=== PATIENT | female | born 1995 | race Caucasian/White ===

== ENCOUNTER 2019-07-08 15:18 | Outpatient (CLI) | payer MEDICARE, MEDICAID ==
--- NOTE | 2019-07-08 16:17 | ULT ---
Exam: Transabdominal and endovaginal pelvic ultrasound HISTORY:Uterine hypertrophy. Pelvic pain. COMPARISON: None TECHNIQUE: Transabdominal and endovaginal imaging of the pelvis is performed. Ovaries are interrogate d with grayscale, color flow, Doppler imaging and spectral wave form analysis FINDINGS: Uterus: No myometrial masses. Uterus measurin.3 x 3.1 x 4.0 cm. Endometrium: Homogeneous echotexture. Endometrium diameter: 0.6 cm. Nabothian cyst measuring 0.5 x 0.6 x 0.7 cm. Free fluid: None Right ovary: Normal echotexture. Simple cyst measuring 1.5 x 1.2 x 1.4 cm. Possible complex cyst karla uring 1.0 x 1.0 x 0.9 cm Right ovary measurement: 2.5 x 2.6 x 2.2 cm Left ovary: Normal echotexture. Left ovary measurements: 2.5 x 2.8 x 1.5 cm Ovarian Doppler: There is vascular flow to the left and right ovary. IMPRESSION: 1. Unremarkable ultrasound of the uterus. 2. Simple cyst in the right ovary. Possible complex cyst in the right ovary. Follow-up ultrasound in 8 weeks is recommended to ensure resolution.
== END 2019-07-08 15:19 | disposition home or self-care (01) ==
LOC: BICULT 15:18
PROVIDERS: ATTEND Nurse Practitioner
DX: N85.2 Hypertrophy of uterus (principal); N83.201 Unspecified ovarian cyst, right side
CPT/HCPCS: 76856

== ENCOUNTER 2020-06-15 09:16 | Emergency (ER) | payer MEDICARE ==
[2020-06-15 10:01] LABS: #Basophils 0.1 thou/uL (0.0-0.2); #Eosinphils 0.2 thou/uL (0.0-0.7); #Monocytes 0.5 thou/uL (0.11-0.59); #Neutrophils 4.7 thou/uL (1.40-6.50); %Basophils 0.8 % (0.0-1.0); %Eosinophils 2.2 % (0.0-10.0); %Lymphocytes 27.2 % (21.0-51.0); %Monocytes 7.3 % (0.0-10.0); %Neutrophils 62.5 % (42.0-75.0); Hemoglobin 14.3 g/dL (12.0-16.0); Mean Corpuscular HGB CONC 34.4 g/dL (32.0-36.0); Mean Corpuscular Hemoglobin 30.3 pg (27.0-31.0); Mean Corpuscular Volume 88.1 fL (78.0-98.0); Mean Platelet Volume 7.6 fL (7.4-10.4); Platelet Count 280 thou/uL (130-400); RBC Distribution Width 12.9 % (11.5-14.5); Red Blood Cell (RBC) Count 4.73 mill/uL (4.20-5.40); White Blood Cell (WBC) Count 7.5 thou/uL (4.8-10.8)
--- NOTE | 2020-06-15 10:34 | ULT ---
EXAM: Pelvic ultrasound HISTORY: Vaginal bleeding COMPARISON: None TECHNIQUE: Multiple grayscale and color Doppler images were obtained in a transabdominal and transvag inal pelvic ultrasound. Spectral analysis of the Doppler waveforms of the ovaries were performed. FINDINGS: CERVIX: No evidence of nabothian cysts. UTERUS: Normal in size without focal abnormality. No intrauterine is seen. ENDOMETRIAL STRIPE: 7 mm. No free fluid is seen in the pelvis. No ectopic is seen. RIGHT OVARY: Normal flow without focal mass. LEFT OVARY: Normal flow without focal mass. IMPRESSION: No significant pelvic abnormality
[2020-06-15 10:44] LABS: Bilirubin Negative (Negative); Blood, Urine Negative (Negative); Clarity Clear (Clear); Glucose, Urine (Dipstick) Normal (Negative); Ketone, Urine Negative (Negative); Leukocyte Negative Leu/uL (Negative); Nitrite Negative (Negative); Protein, Urine (Dipstick) Negative (Neg-Trace); Urobilinogen Normal mg/dL (Less than 2)
== END 2020-06-15 10:52 | disposition home or self-care (01) ==
LOC: ERS 09:16
DX: N94.6 Dysmenorrhea, unspecified (principal); J45.909 Unspecified asthma, uncomplicated; F31.9 Bipolar disorder, unspecified; F42.9 Obsessive-compulsive disorder, unspecified; F90.9 Attention-deficit hyperactivity disorder, unspecified type
CPT/HCPCS: 76856; 81003; 84702; 85025; 86900; 86901; 87086